=== PATIENT | female | born 1950 | race Caucasian/White ===

== ENCOUNTER 2019-10-05 17:04 | Emergency (ER) | payer MEDICARE ==
[~2019-10-05 17:04] MED LIST: ACET325T9 PO; BACI1PAC TP; DOCU100T5 PO; FLUO10CA13 PO; HYDR-2678 PO; LEVO100T PO; MAGN2400 PO; METH10TA4 PO
--- NOTE | 2019-10-05 17:44 | PHYS DOC ---
Past History Past Medical History: Glaucoma, Other Past Surgical History: Other Smoking: Non-smoker Alcohol Use: Occasionally Drug Use: None Adult General Chief Complaint Chief Complaint: LACERATION/AVULSION HPI HPI Patient is a 69-year-old female who was brought here by EMS after she fell on the sidewalk, hit back of her head on the ground. Patient denies any loss of consciousness. Patient complaints of headache, no neck pain, no back pain. Patient is not sure when was the last time she had a tetanus vaccination. Patient denies any chest pain, no abdominal pain, no extremity pain. Review of Systems Review of Systems Constitutional: Denies fever or chills [] Eyes: Denies change in visual acuity, redness, or eye pain [] HENT: Denies nasal congestion or sore throat [] Respiratory: Denies cough or shortness of breath [] Cardiovascular: No additional information not addressed in HPI [] GI: Denies abdominal pain, nausea, vomiting, bloody stools or diarrhea [] : Denies dysuria or hematuria [] Musculoskeletal: Denies back pain or joint pain [] Integument: Denies rash or skin lesions [] Neurologic: Denies headache, focal weakness or sensory changes [] Endocrine: Denies polyuria or polydipsia [] All other systems were reviewed and found to be within normal limits, except as documented in this note. Allergies Allergies Allergies Coded Allergies Type Severity Reaction Last Updated Verified No Known Drug Allergies 03/25/14 No Physical Exam Physical Exam Constitutional: Well developed, well nourished, no acute distress, non-toxic appearance. [] HENT: Normocephalic, SMALL PUNCTURE WOUND IN OCCIPITAL AREA, NO ACTIVE BLEEDING, NO LACERATION, bilateral external ears normal, oropharynx moist, no oral exudates, nose normal. [] Eyes: PERRLA, EOMI, conjunctiva normal, no discharge. [] Neck: Normal range of motion, no tenderness, supple, no stridor. [] Cardiovascular:Heart rate regular rhythm, no murmur [] Lungs & Thorax: Bilateral breath sounds clear to auscultation [] Abdomen: Bowel sounds normal, soft, no tenderness, no masses, no pulsatile masses. [] Skin: Warm, dry, no erythema, no rash. [] Back: No tenderness, no CVA tenderness. [] Extremities: No tenderness, no cyanosis, no clubbing, ROM intact, no edema. [] Neurologic: Alert and oriented X 3, normal motor function, normal sensory function, no focal deficits noted. [] Psychologic: Affect normal, judgement normal, mood normal. [] EKG EKG [] Radiology/Procedures Radiology/Procedures [][address] [address] IMAGING REPORT Signed PATIENT: KAYCEE NOONAN ACCOUNT: [id number] : 1950 LOCATION: ER AGE: 69 SEX: F EXAM STATUS: PRE ER ORD. PHYSICIAN: CHARLEE CALVIN DO REASON: Fell, hit posterior head, head and neck pain. HX:Right eye surger PROCEDURE: CT HEAD AND CERVICAL SPINE WO Exam: CT head and cervical spine without contrast INDICATION: Fall, hit posterior head TECHNIQUE: Sequential axial images through the head and cervical spine were obtained without the administration of IV contrast. Comparisons: None FINDINGS: Head: No focal parenchymal lesion or hemorrhage is identified. There is no midline shift or sulcal effacement. No acute vascular territory infarction is identified. Yeager-white distinction is preserved. The ventricular system is within normal limits without compression hydrocephalus. The basal cisterns are well maintained. Soft tissue irregularity is noted along the posterior aspect of the scalp at the vertex. The visualized portions of the paranasal sinuses and mastoid air cells are well-pneumatized. No acute fractures. Cervical spine: Straightening of the cervical spine which may be positional. Vertebral body heights are well-maintained. Fracture to the cervical spine is not identified. Multilevel spondylotic change in cervical spine with degenerative disc disease greatest at C5-C6. Visualized paraspinal soft tissues are unremarkable. IMPRESSION: 1. Laceration/contusion along the posterior aspect of the scalp at the vertex. No underlying osseous or intracranial abnormality. 2. Negative CT C-spine for acute traumatic injury. Exposure: One or more of the following in the visualized dose reduction techniques were utilized for this examination: 1. Automated exposure control 2. Adjustment of the MA and/or KV according to patient size Use of iterative of reconstructive technique Electronically signed by: Cristofer Black MD (10/05/2019 6:19 PM) [facility] DICTATED AND SIGNED BY: CRISTOFER BLACK MD DATE: 10/05/191818 CC: CHARLEE CALVIN DO; KENYON STEVENSON ~ Course & Med Decision Making Course & Med Decision Making Pertinent Labs and Imaging studies reviewed. (See chart for details) [] Dragon Disclaimer Dragon Disclaimer This electronic medical record was generated, in whole or in part, using a voice recognition dictation system. Departure Departure: Impression: Primary Impression: Head contusion Disposition: HOME, SELF-CARE Condition: STABLE Referrals: KENYON STEVENSON (PCP) follow up with your doctor next week as needed Patient Instructions: Contusion, Head Injury, Adult, VIS, Tetanus, Diphtheria, and Pertussis (Tdap) - CDC Additional Instructions: Thank you for visiting our Emergency Department. We appreciate you trusting us with your care. If any additional problems come up don't hesitate to return to visit us. Please follow up with your primary care provider so they can plan additional care if needed and know about the problem that you had. If symptoms worsen come back to the Emergency Department. Any concerning symptoms that start such as chest pain, shortness of air, weakness or numbness on one side of the body, running high fevers or any other concerning symptoms return to the ER. CHARLEE CALVIN DO Oct 05, 2019 17:43
--- NOTE | 2019-10-05 18:23 | RAD ---
Exam: CT head and cervical spine without contrast INDICATION: Fall, hit posterior head TECHNIQUE: Sequential axial images through the head and cervical spine were obtained without the administration of IV contrast. Comparisons: None FINDINGS: Head: No focal parenchymal lesion or hemorrhage is identified. There is no midline shift or sulcal effacement. No acute vascular territory infarction is identified. Yeager-white distinction is preserved. The ventricular system is within normal limits without compression hydrocephalus. The basal cisterns are well maintained. Soft tissue irregularity is noted along the posterior aspect of the scalp at the vertex. The visualized portions of the paranasal sinuses and mastoid air cells are well-pneumatized. No acute fractures. Cervical spine: Straightening of the cervical spine which may be positional. Vertebral body heights are well-maintained. Fracture to the cervical spine is not identified. Multilevel spondylotic change in cervical spine with degenerative disc disease greatest at C5-C6. Visualized paraspinal soft tissues are unremarkable. IMPRESSION: 1. Laceration/contusion along the posterior aspect of the scalp at the vertex. No underlying osseous or intracranial abnormality. 2. Negative CT C-spine for acute traumatic injury. Exposure: One or more of the following in the visualized dose reduction techniques were utilized for this examination: 1. Automated exposure control 2. Adjustment of the MA and/or KV according to patient size Use of iterative of reconstructive technique Electronically signed by: Cristofer Hardy MD (10/05/2019 6:19 PM) [facility]
[2019-10-05] MEDS ORDERED: DIPHTH,PERTUSS(ACELL),TET TOX 0.5 ML DISP.SYRIN. VAX IM ONE ×2 (18:34→19:00)
[2019-10-05 18:43] VITALS: BP 146/71
== END 2019-10-05 18:30 | disposition home or self-care (01) ==
LOC: ER 17:04
DX: S01.03XA Puncture wound without foreign body of scalp, initial encounter (principal); W10.1XXA Fall (on)(from) sidewalk curb, initial encounter; Y93.89 Activity, other specified; Y92.480 Sidewalk as the place of occurrence of the external cause; Y99.8 Other external cause status
CPT/HCPCS: 70450; 72125; 99284-25

== ENCOUNTER 2021-12-10 16:57 | Emergency (ER) | payer MEDICARE ==
[~2021-12-10] VITALS: Ht 162.6 cm; Wt 59.0 kg
[~2021-12-10 16:57] MED LIST changes: -BACI1PAC TP; +BACI1PAC7 TP; -MAGN2400 PO; +MAGN24003 PO
[2021-12-10 17:06] VITALS: BP 134/75
--- NOTE | 2021-12-10 17:17 | PHYS DOC ---
Past History Past Medical History: No Pertinent History Past Surgical History: No Surgical History Smoking: Non-smoker Alcohol Use: None Drug Use: None Adult General Chief Complaint Chief Complaint: CHEST PAIN HPI HPI Patient is a 71-year-old female sent from urgent care for evaluation of chest pain that has been going on for 3 weeks. The chest pain is a heavy sensation at the top of her chest and she says it feels like a globus phenomenon and thinks this could be anxiety but the urgent care wanted her to be sent here for a troponin. Patient says that the hepatitis comes and goes on its own and is not associated with exertion deep breaths movements eating drinking or anything else that she can think of. She has no associated diaphoresis nausea vomiting or shortness of breath. Patient says she has no history of diabetes hypertension high cholesterol smoking and that she thinks she had a stress test more than 10 years ago and was told there was something slightly abnormal with it but she does not know what it was. She denies any recent cardiac or stratification. She is in no acute distress with normal vital signs. Review of Systems Review of Systems Constitutional: Denies fever or chills [] Eyes: Denies change in visual acuity, redness, or eye pain [] HENT: Denies nasal congestion or sore throat [] Respiratory: Denies cough or shortness of breath [] Cardiovascular: +CP GI: Denies abdominal pain, nausea, vomiting, bloody stools or diarrhea [] : Denies dysuria or hematuria [] Musculoskeletal: Denies back pain or joint pain [] Integument: Denies rash or skin lesions [] Neurologic: Denies headache, focal weakness or sensory changes [] All other systems were reviewed and found to be within normal limits, except as documented in this note. Current Medications Current Medications Current Medications Medications (Trade) Dose Ordered Sig/Raine Start Time Stop Time Status Last Admin Dose Admin Lorazepam (Ativan Inj) 0.5 mg 1X ONCE 12/10/21 17:15 12/10/21 17:16 UNV Allergies Allergies Allergies Coded Allergies Type Severity Reaction Last Updated Verified No Known Drug Allergies 03/25/14 No Physical Exam Physical Exam Constitutional: Well developed, well nourished, no acute distress, non-toxic appearance. [] HENT: Normocephalic, atraumatic, bilateral external ears normal, oropharynx moist, no oral exudates, nose normal. [] Eyes: PERRLA, EOMI, conjunctiva normal, no discharge. [] Neck: Normal range of motion, no tenderness, supple, no stridor. [] Cardiovascular:Heart rate regular rhythm, no murmur [] Lungs & Thorax: Bilateral breath sounds clear to auscultation [] Abdomen: Bowel sounds normal, soft, no tenderness, no masses, no pulsatile ma sses. [] Skin: Warm, dry, no erythema, no rash. [] Back: No tenderness, no CVA tenderness. [] Extremities: No tenderness, no cyanosis, no clubbing, ROM intact, no edema. [] Neurologic: Alert and oriented X 3, normal motor function, normal sensory function, no focal deficits noted. [] Psychologic: Affect normal, judgement normal, mood normal. [] Current Patient Data Vital Signs Vital Signs Date Time Temp Pulse Resp B/P (MAP) Pulse Ox O2 Delivery O2 Flow Rate FiO2 12/10/21 17:06 97.8 78 18 134/75 (94) 98 Room Air EKG EKG [] Radiology/Procedures Radiology/Procedures [] Heart Score C/O Chest Pain: Yes HEART Score for Chest Pain: HEART Score for Chest Pain Response (Comments) Value History Slighlty/Non-Suspicious 0 ECG Nonspecific Repolarizatio 1 Age > 65 2 Total 3 Risk Factors: Risk Factors: DM, Current or recent (<one month) smoker, HTN, HLP, family history of CAD, obesity. Risk Scores: Risk Factors: DM, Current or recent (<one month) smoker, HTN, HLP, family history of CAD, obesity. Course & Med Decision Making Course & Med Decision Making Patient with chest pain that is atypical for ACS in my opinion but she is 71 years old and a female. I had extensive discussion with patient that we would likely be able to rule out a heart attack here in the emergency department however we cannot rule out coronary artery disease and that we would need to make a decision whether she needs to be admitted the hospital for further provocative testing or whether she is comfortable with going home understanding the risk of her possibly having coronary artery disease and potentially dying or having disability. Patient said that she does not want to stay in the hospital but would be willing to do outpatient testing. I will check labs and imaging and reassess. Patient's labs are pending at this time, if negative patient is wanting to go home. I will transfer care to Dr. Chavarria pending final disposition plan. Dragon Disclaimer Dragon Disclaimer This electronic medical record was generated, in whole or in part, using a voice recognition dictation system. Departure Departure: Impression: Primary Impression: Chest pain at rest Referrals: KENYON STEVENSON (PCP) DANE LOPEZ DO Dec 10, 2021 17:17
[2021-12-10] MEDS ORDERED: ASPIRIN CHEWABLE 81 MG TABLET. PO ONE (18:15)
[2021-12-10] MEDS ORDERED: LORazepam 1 MG TABLET PO ONE (18:15)
[2021-12-10 18:32] LABS: BASO % 1 % (0-3); EOS # 0.1 x10^3/uL (0.0-0.7); EOS % 2 % (0-3); HEMATOCRIT 36.7 % (36.0-47.0); HEMOGLOBIN 12.2 g/dL (12.0-15.5); LYMPH # 1.7 x10^3/uL (1.0-4.8); LYMPH % 32 % (24-48); MEAN CORPUSCULAR HEMOGLOBIN 30 pg (25-35); MEAN CORPUSCULAR HGB CONC 33 g/dL (31-37); MEAN CORPUSCULAR VOLUME 91 fL (79-100); MONO # 0.5 x10^3/uL (0.0-1.1); MONO % 8 % (0-9); NEUT # 3.1 x10^3uL (1.8-7.7); NEUT % 57 % (31-73); PLATELET COUNT 215 x10^3/uL (140-400); RED BLOOD COUNT 4.03 x10^6/uL (3.50-5.40); RED CELL DISTRIBUTION WIDTH 13.4 % (11.5-14.5); WHITE BLOOD COUNT 5.4 x10^3/uL (4.0-11.0)
--- NOTE | 2021-12-10 18:38 | EKG ---
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
[2021-12-10 18:41] LABS: CALCIUM 9.1 mg/dL (8.5-10.1); CREATININE 0.7 mg/dL (0.6-1.0); GFR 82.5; POTASSIUM 3.6 mmol/L (3.5-5.1)
[2021-12-10 18:54] LABS: ALBUMIN 3.8 g/dL (3.4-5.0); ALBUMIN/GLOBULIN RATIO 1.3 (1.0-1.7); TOTAL BILIRUBIN 0.3 mg/dL (0.2-1.0); TOTAL PROTEIN 6.8 g/dL (6.4-8.2)
--- NOTE | 2021-12-10 19:05 | RAD ---
XR CHEST 1V Clinical History: Reason: CP / Spl. Instructions: / History: Technique: AP view of the chest was obtained at 12/10/2021 5:32 PM. Comparison: March 25, 2014. Findings: The cardiomediastinal silhouette is normal. The pulmonary vasculature is normal. The lungs and pleura l margins are clear. Impression: No evidence of an acute cardiopulmonary process. Electronically signed by: Timi Genao III, MD (12/10/2021 7:02 PM) [facility]
== END 2021-12-10 19:25 | disposition home or self-care (01) ==
LOC: ER 16:57
DX: R07.89 Other chest pain (principal)
CPT/HCPCS: 36415; 71045; 80053; 83690; 83880; 84484; 85025; 85610; 85730; 93005; 99285

== ENCOUNTER → 2022-01-25 | Outpatient (CLI) | payer MEDICARE ==
[~2022-01-25] MED LIST changes: +IOHEXOL 300 MG/ML 75 ML VIAL. IV ONE
--- NOTE | 2022-01-25 11:07 | RAD ---
PQRS Compliance Statement: One or more of the following individualized dose reduction techniques were utilized for this examinat ion: 1. Automated exposure control 2. Adjustment of the mA and/or kV according to patient size 3. Use of iterative reconstruction technique CT THORAX W 01/25/2022 10:52 AM Indication: Sarcoidosis COMPARISON: None available. TECHNIQUE: Multiple axial CT images of the chest were obtained after intravenous demonstration of non ionic contrast. Coronal and sagittal reformats are provided. FINDINGS: There are no pathologically enlarged axillary, mediastinal or hilar lymph nodes. Heart size is within normal limits. Thoracic aorta is normal in course and caliber. There is no significant pericardial e ffusion. Thoracic esophagus is normal in appearance. Anterior chest wall appears intact. No significa nt coronary artery vascular calcifications are present. Calcified mediastinal lymph nodes suggest seq uela prior granulomatous exposure. There is a 4 mm subpleural solid noncalcified pulmonary nodule identified within the left lower lobe (series 4, image 57). There are no pleural effusions, pulmonary vascular congestion or pneumothorax. Lungs are clear without focal airspace consolidation. Central airways are clear. Calcifications within the liver and spleen suggest sequela prior granulomatous exposure. Mild fusifor m thickening of the adrenal glands favor adenomatous hyperplasia. No suspicious osseous abnormality. Healed remote right lateral fifth rib fracture noted. No paraspina l soft tissue mass. IMPRESSION: 1. There is a 4 mm subpleural solid noncalcified pulmonary nodule in the left lower lobe. Fleischner guidelines for incidentally detected pulmonary nodules suggests no routine follow-up for low risk pat ients and optional CT at 12 months for high risk patients with solid noncalcified pulmonary nodules l ess than 6 mm in size. 2. Calcified mediastinal lymph nodes as well as calcifications within the liver and spleen demonstrat e sequela prior granulomatous exposure. 3. Fusiform thickening of the adrenal glands or adenomatous hyperplasia. Electronically signed by: Lakeisha Elliott MD (01/25/2022 11:05 AM) [id number]
== END ==
LOC: CT 10:31
PROVIDERS: ATTEND Internal Medicine Cardiovascular Disease
DX: R59.0 Localized enlarged lymph nodes (principal); D86.9 Sarcoidosis, unspecified; R91.1 Solitary pulmonary nodule; E27.8 Other specified disorders of adrenal gland
CPT/HCPCS: 71260; Q9967